=== PATIENT | male | born 1955 | race Caucasian/White ===

== ENCOUNTER → 2017-09-08 | Outpatient (CLI) | payer OTHER ==
--- NOTE | 2017-09-08 16:05 | Diagnostic Imaging Report ---
Indication: Neck pain. Time of exam: 10:09 AM Three views of the cervical spine were obtained. Curvature is normal. There is mild anterolisthesis of C4 on C5. Severe degenerative disc disease, C5-6 level is noted with disc space narrowing and marginal spurring. C6 and C7 levels are difficult to evaluate due to overlying soft tissues. Prevertebral tissues are normal. No fractures are seen. There appears to be multilevel facet arthropathy. Impression: Cervical spondylosis and listhesis. The lower cervical segments are poorly evaluated on this study. If clinically indicated, CT of the cervical spine could be performed for further evaluation. Dictated by: Dictated on workstation # [id number]
--- NOTE | 2017-09-08 16:09 | Diagnostic Imaging Report ---
INDICATION: Back pain. TIME OF EXAM: 10:10 a.m. FINDINGS: AP and lateral views of the lumbar spine were obtained. Curvature and alignment is normal. Vertebral body heights are maintained. No acute compression fracture is seen. There is multilevel degenerative disc disease with variable disc space narrowing and marginal spurring. Abdominal aorta is heavily calcified. IMPRESSION: Lumbar spondylosis. No acute bony abnormality is detected. Dictated by: Dictated on workstation # [id number]
== END ==
LOC: RAD 09:36
PROVIDERS: ATTEND Surgery
DX: Z02.71 Encounter for disability determination (principal); M47.812 Spondylosis without myelopathy or radiculopathy, cervical region; M47.816 Spondylosis without myelopathy or radiculopathy, lumbar region; M43.12 Spondylolisthesis, cervical region
CPT/HCPCS: 72040; 72100